=== PATIENT | male | born 2000 | race Caucasian/White ===

== ENCOUNTER 2022-03-31 20:31 | Emergency (ER) | payer OTHER ==
[~2022-03-31] VITALS: Ht 162.6 cm; Wt 79.4 kg
[2022-03-31 20:31] VITALS: BP 152/98
--- NOTE | 2022-03-31 20:37 | NUR ---
PT BIBA BLS TO BED 08
--- NOTE | 2022-03-31 20:40 | NUR ---
ERMD AT BEDSIDE
[2022-03-31] MEDS ORDERED: KETOROLAC 60 MG/2 ML VIAL IM ONE (20:45)
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
--- NOTE | 2022-03-31 22:25 | NUR ---
ERMD AT BEDSIDE RECIEVING STORY AND ASSESSING
[2022-03-31 22:56] LABS: BASOPHILS % (AUTO) 0.6 % (0.0-2.0); EOSINOPHILS # (AUTO) 0.2 K/uL (0-0.4); EOSINOPHILS % (AUTO) 2.7 % (0.0-4.0); HEMATOCRIT 43.3 % (36-52); HEMOGLOBIN 14.9 g/dL (12.0-18.0); LYMPHOCYTES # (AUTO) 2.8 K/uL (2.0-11.5); LYMPHOCYTES % (AUTO) 35.9 % (20.5-51.1); MEAN CORPUSCULAR HEMOGLOBIN 28 pg (27-31); MEAN CORPUSCULAR HGB CONC 34 g/dL (33-37); MEAN CORPUSCULAR VOLUME 79.9 fL (80-94); MONOCYTES # (AUTO) 0.6 K/uL (0.8-1.0); MONOCYTES % (AUTO) 7.9 % (1.7-9.3); NEUTROPHILS # (AUTO) 4.1 K/uL (1.8-7.7); NEUTROPHILS % (AUTO) 52.9 % (42.2-75.2); PLATELET COUNT (AUTO) 259 K/uL (140-450); RED BLOOD CELL COUNT(AUTO) 5.42 MIL/uL (4.20-6.10); WHITE BLOOD COUNT (AUTO) 7.7 K/uL (4.5-11.0)
[2022-03-31 22:59] VITALS: BP 130/76
[2022-03-31 23:35] LABS: ANION GAP 11.6 (8-16); CARBON DIOXIDE 27.2 mmol/L (21-32); POTASSIUM 3.8 mmol/L (3.5-5.1)
[2022-03-31 23:46] LABS: CREATININE 1.1 mg/dL (0.6-1.3); TOTAL BILIRUBIN 0.3 mg/dL (0.0-1.0)
--- NOTE | 2022-03-31 23:50 | NUR ---
PT TAKEN TO CT
--- NOTE | 2022-04-01 01:20 | NUR ---
Patient does not wish to proceed with medical care recommended by dr [email or web address]. Patient given information related to possible complications, up to and including , which could occur as a result of leaving hospital at this time. Patient verbalizes understanding of risks involved leaving against medical advice. Patient has signed AMA form.
== END 2022-04-01 01:20 | disposition home or self-care (01) ==
LOC: MED 20:31
DX: S19.9XXA Unspecified injury of neck, initial encounter (principal); V89.2XXA Person injured in unspecified motor-vehicle accident, traffic, initial encounter; Y93.89 Activity, other specified; Y92.89 Other specified places as the place of occurrence of the external cause; Y99.8 Other external cause status
CPT/HCPCS: 36415; 70450; 71045; 71260; 72040; 72125; 80053; 85025; 96372; 99285; J1885; Q9967